=== PATIENT | female | born 1945 | race Two or more races ===

== ENCOUNTER 2018-06-27 09:08 | Outpatient (CLI) | payer OTHER ==
[2018-06-29] MEDS ORDERED: HYDRALAZINE HC100 MG PO (09:57)
[2018-06-29] MEDS ORDERED: HYDRALAZINE HCL50 MG (09:58)
[2018-06-29] MEDS ORDERED: LOSARTAN-HCTZ1 EAC1 PO (09:58)
[2018-06-29] MEDS ORDERED: GABAPENTIN100 MG PO (09:59)
[2018-06-29] MEDS ORDERED: CRESTOR40 MG PO (09:59)
[2018-06-29] MEDS ORDERED: METOPROLOL SUC200 MG PO (09:59)
[2018-06-29] MEDS ORDERED: [UNRECOGNIZED DRUG - OTHER] (10:00)
[2018-06-29] MEDS ORDERED: LUMIGAN2.5 M1 OP (10:01)
== END 2018-06-27 09:11 | disposition home or self-care (01) ==
LOC: EKG 09:08
DX: I10 Essential (primary) hypertension (principal)

== ENCOUNTER 2018-07-03 06:20 | Day surgery (SDC) | payer OTHER ==
[~2018-07-03 06:20] MED LIST: CRESTOR40 MG PO; GABAPENTIN100 MG PO; HYDRALAZINE HC100 MG PO; HYDRALAZINE HCL50 MG; LOSARTAN-HCTZ1 EAC1 PO; LUMIGAN2.5 M1 OP; METOPROLOL SUC200 MG PO; [UNRECOGNIZED DRUG - OTHER]
== END 2018-07-03 14:05 | disposition home or self-care (01) ==
LOC: CIR.AMB 06:20
DX: M19.042 Primary osteoarthritis, left hand (principal)